=== PATIENT | female | born 1965 | race Caucasian/White ===

== ENCOUNTER 2017-03-19 12:59 | Day surgery (SDC) | payer OTHER ==
[~2017-03-19 12:59] MED LIST: B-COTAB41 PO; FLON0.053; GLUC1CAP14 PO; LORA0.5T PO; PERC5TAB12 PO; TAB-TAB PO; VITA500T83 PO
[2017-03-19] MEDS ORDERED: LIDOCAINE HCL 1% 20 ML VIAL ONE (14:41)
--- NOTE | 2017-03-19 15:03 | RADRPT ---
EXAM DATE/TIME: 03/19/2017 13:18 [facility] COMPARISON: No previous studies available for comparison. EXTERNAL COMPARISON: [facility], PET/CT HEAD NECK, Mar 10 2017. INDICATIONS : Enlarged right supraclavicular lymph node. MEDICAL HISTORY : Cervical and endometrial cancer. Hay fever. Heart burn. SURGICAL HISTORY : Hysterectomy. Exp Lap. Right urethral stent. D&C. Colonoscopy. ENCOUNTER: Initial ACUITY: 2 weeks PAIN SCORE: 0/10 LOCATION: Right neck ORGAN: Right lymph node SPECIMENS: One core specimen(s) submitted for pathologic evaluation. DEVICE: 18 gauge Temno needle Post procedure scanning reveals no hematoma or other complication. The possibility does exist that the tissue obtained will be non-diagnostic. If the sample is non-shadia gnostic a repeat biopsy or surgical biopsy may need to be performed. TECHNIQUE: 1. Ultrasound guidance for needle biopsy. 2. Needle biopsy. The risks, benefits and alternatives to the procedure were explained and verbal and written consent w as obtained. The site was prepped in sterile fashion. Full sterile technique was used, including ca p, mask, sterile gloves and gown and a large sterile sheet. Hand hygiene and 2% chlorhexidine and/or betadine/alcohol prep was utilized per protocol for cutaneous antisepsis. The skin and subcutaneous tissues were infiltrated with local anesthetic solution. Sterile gel and sterile probe cover were u tilized for ultrasound guidance. With the patient on the ultrasound table, images were obtained. A needle was advanced into the identified target and the number of specimens as above obtained and todd bmitted for pathologic evaluation. The patient tolerated the procedure well and left the ultrasound suite in stable condition. CONCLUSION: Uncomplicated ultrasound guided needle biopsy. Rikki Collazo MD on March 19, 2017 at 15:00 Board Certified Radiologist. This report was verified electronically.
== END 2017-03-19 15:18 | disposition home or self-care (01) ==
LOC: HRAD 12:59 → HRIP 12:59 → HRAD 15:18
PROVIDERS: ATTEND Nurse Practitioner Family
DX: C77.0 Secondary and unspecified malignant neoplasm of lymph nodes of head, face and neck (principal); Z85.42 Personal history of malignant neoplasm of other parts of uterus
CPT/HCPCS: 38505; 76942; 88305; 88341; 88342

== ENCOUNTER 2017-03-29 07:19 | Day surgery (SDC) | payer OTHER ==
[~2017-03-29] VITALS: Ht 172.7 cm; Wt 65.9 kg
[~2017-03-29 07:19] MED LIST changes: +ASCO500C; -B-COTAB41 PO; +CRANCAP2 PO; +ESTR.9 PO; -FLON0.053; -GLUC1CAP14 PO; +GLUC500T4 PO; +MULT1TAB46; -PERC5TAB12 PO; -TAB-TAB PO; -VITA500T83 PO; +VITACAP7 PO
[2017-03-29 07:46] VITALS: BP 122/76; PULSE 72; RESP 20; TEMP 98.1; O2SAT 98
[2017-03-29] MEDS ORDERED: FISHCAP4 PO (07:52)
[2017-03-29] MEDS ORDERED: LIDOCAINE 1%/EPINEPHrine 1:100,000 SOLN 30 ML VIAL ONE (08:17)
[2017-03-29] MEDS ORDERED: VANCOMYCIN 1000 MG/NS 250 ML ON-CALL IV SCH ×2 (08:30)
[2017-03-29] MEDS ORDERED: ceFAZolin 2 GM PREMIX 50 ML IV SCH (08:30)
[2017-03-29] MEDS ORDERED: CHLORHEXIDINE GLUCONATE 4% SOLN 120 ML BTL TOPICAL SCH (08:30)
[2017-03-29] MEDS ORDERED: SODIUM CHLOR 0.9% 1000 ML INJ 1,000 ML IV SCH (08:30)
[2017-03-29] MEDS ORDERED: POVIDONE IODINE 7.5% SCRUB 118 ML BOTTLE TOPICAL SCH (08:30)
[2017-03-29] MEDS ORDERED: MIDAZOLAM HCL 2 MG/2 ML VIAL ONE ×2 (09:07→10:00)
[2017-03-29] MEDS ORDERED: ONDANSETRON HCL 4 MG/2 ML VIAL ONE (09:08)
[2017-03-29 10:30] VITALS: BP 109/60; PULSE 69; RESP 20; TEMP 98; O2SAT 96
--- NOTE | 2017-03-29 10:40 | PD.RAD ---
Post Procedure Progress Note Pre Procedure Diagnosis: (1) Cervical cancer Post Procedure Diagnosis: (1) Cervical cancer Procedure Date: Mar 29, 2017 Supervising Radiologist: Petey Lee JR Proceduralist/Assist: Eliu Abdul, RT(R), Lizette Summers RT(R)(CV) Anesthesia: Conscious Sedation Plan of Activity Patient to Unit: ROPU Patient Condition: Good See PACS Report for procedural detail/treatment Central Venous Access Device Procedure 1 Right Internal Jugular Infusaport Placement single lumen Citizen Of [place]: 8 Findings: Port in good position and functions well. OK to use. Plan F/U with IR or a physician in 10-14 days for a site check Jr. Jesus,Petey Rosenberg MD Mar 29, 2017 10:40
[2017-03-29 10:45] VITALS: BP 108/60; PULSE 79; RESP 20; O2SAT 94
[2017-03-29] MEDS ORDERED: SODIUM CHLORIDE 0.9% FLUSH 10 ML FLUSH IVF PRN (10:45)
--- NOTE | 2017-03-29 11:13 | RADRPT ---
EXAM DATE/TIME: 03/29/2017 08:12 [facility] COMPARISON: No previous studies available for comparison. INDICATIONS : Patient presents with cervical cancer in need of port placement for chemotherapy treatment. MEDICAL HISTORY : Cervical cancer hx GERD Urinary retention Anxiety SURGICAL HISTORY : Exp lap Radical hysterectomy Right ureteral stent ENCOUNTER: Initial ACUITY: >1 year PAIN SCORE: 0/10 LOCATION: N/A FLUORO TIME: 0.4 minutes IMAGE SERIES: 1 SEDATION TIME: 35 minutes ACCESS: Right internal jugular vein SEDATION: 1.) 5 mg midazolam (Versed) IV 2.) 250 mcg fentanyl (Sublimaze) IV 3.) 4mg ondansetron (Zofran) IV Prophylactic antibiotics were administered with appropriate pre-procedure timing. Vancomycin within 2 hours of procedure, Ancef (or alternative) within 1 hour of procedure. DEVICE: 1. 8 [place] single lumen Bard Power Port PROCEDURE : 1. Continuous pulse oximetry and EKG monitoring. 2. Intravenous conscious sedation. 3. Ultrasound guidance for venous access. 4. Fluoroscopic guided implantable central venous port placement. The patient was placed supine. The neck was prepped in sterile fashion. Full sterile technique was u sed, including cap, mask, sterile gloves and gown, and a large sterile sheet. Hand hygiene and 2% ch lorhexidine Betadine was utilized per protocol for cutaneous antisepsis with appropriate dry time for site. Sterile gel and sterile probe cover were utilized for ultrasound guidance. The skin and sub cutaneous tissues were infiltrated with local anesthetic solution. Under direct ultrasound guidance, central venous access was accomplished in the targeted vessel. The ultrasound images depicting access guidance were stored and saved to PACS for permanent record. A s ubcutaneous pocket was created using blunt dissection. The port was introduced to the pocket. The c atheter tubing was fed through a subcutaneous tunnel to the venotomy site. The catheter tubing was c ut to a suitable length and then was introduced through a valved Peel-Away sheath and positioned with catheter tubing tip at the cavo-atrial junction level. The pocket incision was closed with subcutic ular Vicryl suture. Steri-Strips were applied. The port was flushed and locked with heparin solutio n per protocol. Sterile dressing was applied to the site. The patient tolerated the procedure well. Conscious sedation was performed with the prescribed dosages and duration as above in the presence of an independent trained radiology nurse to assist in the monitoring of the patient. EKG and oximetry remained stable throughout the procedure. The patient tolerated the procedure well and there were no complications. The patient was sent to post anesthesia recovery in stable condition. CONCLUSION: Uncomplicated ultrasound and fluoroscopic guided implanted central venous port catheter placement as described in detail above. An 8 [place] Power port was placed. Petey Lee Jr., MD on March 29, 2017 at 11:11 Board Certified Radiologist. This report was verified electronically.
[2017-03-29 11:15] VITALS: BP 116/72; PULSE 65; RESP 20; O2SAT 95
[2017-03-29 11:45] VITALS: BP 100/47; PULSE 75; RESP 20; O2SAT 96
[2017-03-29 12:15] VITALS: BP 112/60; PULSE 68; RESP 20; O2SAT 96
== END 2017-03-29 12:30 | disposition home or self-care (01) ==
LOC: HROP 07:19 → HRIP 07:25 → HROP 12:30
PROVIDERS: ATTEND Obstetrics & Gynecology Gynecologic Oncology
DX: Z45.2 Encounter for adjustment and management of vascular access device (principal); C53.9 Malignant neoplasm of cervix uteri, unspecified; K21.9 Gastro-esophageal reflux disease without esophagitis; F41.9 Anxiety disorder, unspecified
CPT/HCPCS: 36561; 76937; 77001; 99152; 99153; C1788; J0690; J1642; J2250; J2405; J3010; J3370; J7030; J7050